=== PATIENT | female | born 1980 | race Caucasian/White ===

== ENCOUNTER 2017-08-03 02:33 | Emergency (ER) | payer OTHER ==
[~2017-08-03] VITALS: Ht 165.1 cm; Wt 75.0 kg
[2017-08-03] MEDS ORDERED: METOCLOPRAMIDE HCL 5 MG/ML 2 ML VIAL IM ONE (04:00)
[2017-08-03] MEDS ORDERED: KETOROLAC TROMETHAMINE 30 MG/ML VIAL IM ONE (04:00)
[2017-08-03] MEDS ORDERED: DiphenhydrAMINE HCL 50 MG/ML VIAL IM ONE (04:00)
[2017-08-03 04:34] LABS: BASOPHILS # (AUTO) 0.06 K/uL (0.00-0.20); BASOPHILS % (AUTO) 0.6 % (0.0-2.0); EOSINOPHILS # (AUTO) 0.05 K/uL (0.00-0.70); EOSINOPHILS % (AUTO) 0.49 % (1.0-6.0); HEMATOCRIT 36.4 % (36-46); HEMOGLOBIN 12.4 g/dL (12.0-16.0); LYMPHOCYTES # (AUTO) 2.5 K/uL (1.0-4.8); LYMPHOCYTES % (AUTO) 23.4 % (22.0-44.0); MEAN CORPUSCULAR HEMOGLOBIN 29.7 pg (26.0-34.0); MEAN CORPUSCULAR VOLUME 87 fL (80-100); MONOCYTES # (AUTO) 0.3 K/uL (0.1-1.0); MONOCYTES % (AUTO) 2.9 % (2.0-9.0); NEUTROPHILS # (AUTO) 7.7 K/uL (1.8-7.7); NEUTROPHILS % (AUTO) 72.7 % (40.0-70.0); PLATELET COUNT (AUTO) 253 K/uL (150-450); RED BLOOD CELL COUNT(AUTO) 4.17 MIL/uL (4.00-5.20); RED CELL DISTRIBUTION WIDTH 12.7 % (11.5-14.5)
[2017-08-03 04:53] LABS: ANION GAP 8 mmol/L (8-16); CALCIUM, TOTAL 8.8 mg/dL (8.8-10.5); CARBON DIOXIDE 26 mmol/L (22-29); CHLORIDE 104 mmol/L (98-107); CREATININE 0.66 mg/dL (0.60-1.30); GLOMERULAR FILTR. RATE CALC > 60 mL/min (>60); GLUCOSE,RANDOM 105 mg/dL (70-110); POTASSIUM 3.8 mmol/L (3.5-5.1); SODIUM SERUM 138 mmol/L (136-145); UREA NITROGEN, BLOOD 15 mg/dL (7-18)
[2017-08-03 05:00] LABS: ALANINE AMINOTRANSFERASE 18 U/L (12-78); ALBUMIN 3.8 g/dL (3.4-5.0); ALKALINE PHOSPHATASE 48 U/L (46-116); ASPARTATE AMINOTRANSFERASE 15 U/L (15-37); BILIRUBIN,TOTAL 0.4 mg/dL (0.1-1.0); LIPASE 100 U/L (73-393)
[2017-08-03 05:26] VITALS: BP 136/75
== END 2017-08-03 05:30 | disposition home or self-care (01) ==
LOC: EMS 02:34
DX: R51 Headache (principal); E78.00 Pure hypercholesterolemia, unspecified
CPT/HCPCS: 36415; 80053; 83690; 84703; 85025; 96372; 99284; J1200; J1885; J2765

== ENCOUNTER 2017-10-23 18:02 | Emergency (ER) | payer OTHER ==
[~2017-10-23] VITALS: Ht 162.6 cm; Wt 92.7 kg
[2017-10-23] MEDS ORDERED: PredniSONE 20 MG TABLET PO ONE (20:15)
[2017-10-23] MEDS ORDERED: ALBUTEROL SULFATE 2.5 MG/0.5 ML NEB SOLUTION NEB ONE (20:15)
[2017-10-23] MEDS ORDERED: IPRATROPIUM BROMIDE 0.5 MG/2.5 ML NEB SOLUTION NEB ONE (20:15)
[2017-10-23 21:34] VITALS: BP 141/77
== END 2017-10-23 21:40 | disposition home or self-care (01) ==
LOC: EMS 18:06
DX: J06.9 Acute upper respiratory infection, unspecified (principal); J40 Bronchitis, not specified as acute or chronic; R51 Headache; E78.00 Pure hypercholesterolemia, unspecified
CPT/HCPCS: 71046; 94640; 99284; J7512; J7613

== ENCOUNTER 2018-07-14 15:53 | Emergency (ER) | payer MEDICAID, OTHER ==
[~2018-07-14] VITALS: Ht 160 cm; Wt 90.9 kg
[2018-07-14] MEDS ORDERED: BACL10TA PO (16:06)
[2018-07-14] MEDS ORDERED: GABA-531 PO (16:06)
[2018-07-14] MEDS ORDERED: GABAPENTIN 400 MG CAPSULE PO ONE (17:45)
[2018-07-14] MEDS ORDERED: ONDANSETRON HCL 4 MG TABLET PO ONE (17:45)
[2018-07-14] MEDS ORDERED: DIAZEPAM 5 MG TABLET PO ONE (17:45)
[2018-07-14 18:10] VITALS: BP 126/79
== END 2018-07-14 18:12 | disposition home or self-care (01) ==
LOC: EMS 15:54
DX: G56.91 Unspecified mononeuropathy of right upper limb (principal); M25.511 Pain in right shoulder; R11.0 Nausea; M79.605 Pain in left leg
CPT/HCPCS: 99284; Q0162

== ENCOUNTER 2021-11-23 22:43 | Emergency (ER) | payer MEDICAID ==
[~2021-11-23] VITALS: Ht 160 cm; Wt 97.7 kg
[~2021-11-23 22:43] MED LIST: BACL10TA PO; GABA-1181 PO
[2021-11-23] MEDS ORDERED: IBUPROFEN 400 MG TABLET PO ONE (23:45)
[2021-11-23] MEDS ORDERED: ACETAMINOPHEN 325 MG TABLET PO ONE (23:45)
[2021-11-24 01:43] VITALS: BP 120/72
[2021-11-24] MEDS ORDERED: PERTUSS(ACELL),DIPH,TET VAC/PF 0.5 ML SYRINGE IM. ONE (02:15)
== END 2021-11-24 03:06 | disposition home or self-care (01) ==
LOC: EMS 22:47
DX: S80.212A Abrasion, left knee, initial encounter (principal); Z88.5 Allergy status to narcotic agent; W18.39XA Other fall on same level, initial encounter; Y93.89 Activity, other specified; Y92.89 Other specified places as the place of occurrence of the external cause; Y99.8 Other external cause status
CPT/HCPCS: 29530; 73503; 73552; 90471; 90715; 99284

== ENCOUNTER 2022-04-27 21:31 | Emergency (ER) | payer MEDICAID ==
[~2022-04-27] VITALS: Ht 162.6 cm; Wt 90.9 kg
[2022-04-27] MEDS ORDERED: SODIUM CHLORIDE 0.9% 500 ML IV ONE (22:30)
[2022-04-27 23:25] LABS: BASOPHILS % (AUTO) 0.6 % (0.0-2.0); EOSINOPHILS % (AUTO) 0.5 % (1.0-6.0); HEMATOCRIT 40.1 % (36-46); HEMOGLOBIN 13.6 g/dL (12.0-16.0); LYMPHOCYTES # (AUTO) 1.8 K/uL (1.0-4.8); LYMPHOCYTES % (AUTO) 17.4 % (22.0-44.0); MEAN CORPUSCULAR HEMOGLOBIN 29.3 pg (26.0-34.0); MEAN CORPUSCULAR HGB CONC 33.9 G/dL (31.0-37.0); MEAN CORPUSCULAR VOLUME 87 fL (80-100); MONOCYTES # (AUTO) 0.5 K/uL (0.1-1.0); MONOCYTES % (AUTO) 4.3 % (2.0-9.0); NEUTROPHILS # (AUTO) 8.2 K/uL (1.8-7.7); NEUTROPHILS % (AUTO) 77.2 % (40.0-70.0); PLATELET COUNT (AUTO) 248 K/uL (150-450); RED BLOOD CELL COUNT(AUTO) 4.63 MIL/uL (4.00-5.20)
[2022-04-27 23:34] LABS: ANION GAP 8 mmol/L (8-16); CALCIUM, TOTAL 8.5 mg/dL (8.8-10.5); CARBON DIOXIDE 25 mmol/L (22-29); CHLORIDE 107 mmol/L (98-107); CREATININE 0.71 mg/dL (0.60-1.30); GLUCOSE,RANDOM 107 mg/dL (70-110); POTASSIUM 3.9 mmol/L (3.5-5.1); SODIUM SERUM 140 mmol/L (136-145); UREA NITROGEN, BLOOD 12 mg/dL (7-18)
[2022-04-27 23:37] LABS: GLOMERULAR FILTR. RATE CALC > 60 mL/min (>60)
[2022-04-27 23:49] LABS: ALANINE AMINOTRANSFERASE 18 U/L (12-78); ALBUMIN 3.3 g/dL (3.4-5.0); ALKALINE PHOSPHATASE 53 U/L (46-116); ASPARTATE AMINOTRANSFERASE 11 U/L (15-37); BILIRUBIN,TOTAL 0.2 mg/dL (0.1-1.0); HCG,QUANTITATIVE < 1 mIU/mL (0-6); THYROID STIMULATING HORMONE 0.46 uIU/mL (0.36-3.74); TOTAL PROTEIN, SERUM 6.4 g/dL (6.4-8.2)
[2022-04-28 00:33] VITALS: BP 113/67
[2022-04-28 00:38] LABS: COVID AG,FIA SOURCE NASOPHARYNGEAL
== END 2022-04-28 01:16 | disposition home or self-care (01) ==
LOC: EMS 21:39
DX: R42 Dizziness and giddiness (principal); M19.90 Unspecified osteoarthritis, unspecified site; G62.9 Polyneuropathy, unspecified; R73.03 Prediabetes; Z98.2 Presence of cerebrospinal fluid drainage device; Z88.8 Allergy status to other drugs, medicaments and biological substances; Z20.822 Contact with and (suspected) exposure to COVID-19
CPT/HCPCS: 99285; 96360; 71045; 87426; 80053; 84443; 84484; 84702; 85025; 36415; 93005; J7040

== ENCOUNTER 2022-08-31 22:53 | Emergency (ER) | payer MEDICAID ==
[~2022-08-31] VITALS: Ht 160 cm; Wt 85.0 kg
[2022-09-01 00:30] VITALS: BP 129/78
[2022-09-01] MEDS ORDERED: IBUP-2070 PO (00:56)
[2022-09-01] MEDS ORDERED: KETOROLAC TROMETHAMINE 60 MG/2 ML VIAL IM ONE (01:00)
== END 2022-09-01 02:00 | disposition home or self-care (01) ==
LOC: EMS 23:51
DX: M54.6 Pain in thoracic spine (principal); M25.511 Pain in right shoulder; M25.552 Pain in left hip; R73.03 Prediabetes; V49.9XXA Car occupant (driver) (passenger) injured in unspecified traffic accident, initial encounter; Y93.89 Activity, other specified; Y92.89 Other specified places as the place of occurrence of the external cause; Y99.8 Other external cause status; Z88.6 Allergy status to analgesic agent; G89.29 Other chronic pain
CPT/HCPCS: 99283; 96372; J1885

== ENCOUNTER 2024-04-07 06:54 | Emergency (ER) | payer MEDICAID ==
[~2024-04-07] VITALS: Ht 162.6 cm; Wt 81.8 kg
[~2024-04-07 06:54] MED LIST changes: -BACL10TA PO; -GABA-1181 PO; +IBUP-1492 PO
[2024-04-07] MEDS: ONDANSETRON HCL 4 MG/2 ML VIAL IVP ONE (07:38)
[2024-04-07] MEDS: SODIUM CHLORIDE 0.9% 1,000 ML IV ONE (07:38)
[2024-04-07 07:40] LABS: BASOPHILS % (AUTO) 0.5 % (0.0-2.0); EOSINOPHILS % (AUTO) 0.2 % (1.0-6.0); HEMATOCRIT 41.3 % (36-46); HEMOGLOBIN 13.7 g/dL (12.0-16.0); LYMPHOCYTES # (AUTO) 1.3 K/uL (1.0-4.8); MEAN CORPUSCULAR HEMOGLOBIN 29.9 pg (26.0-34.0); MEAN CORPUSCULAR HGB CONC 33.3 G/dL (31.0-37.0); MEAN CORPUSCULAR VOLUME 90 fL (80-100); MONOCYTES # (AUTO) 0.3 K/uL (0.1-1.0); MONOCYTES % (AUTO) 3.4 % (2.0-9.0); NEUTROPHILS % (AUTO) 80.9 % (40.0-70.0); PLATELET COUNT (AUTO) 268 K/uL (150-450); WHITE BLOOD COUNT (AUTO) 8.7 K/uL (4.5-11.0)
[2024-04-07 07:46] LABS: ANION GAP 6 mmol/L (8-16); CALCIUM, TOTAL 9.1 mg/dL (8.8-10.5); CARBON DIOXIDE 30 mmol/L (22-29); CHLORIDE 103 mmol/L (98-107); CREATININE 0.65 mg/dL (0.60-1.30); GLOMERULAR FILTR. RATE CALC > 60 mL/min (>60); GLUCOSE,RANDOM 99 mg/dL (70-110); POTASSIUM 3.8 mmol/L (3.5-5.1); SODIUM SERUM 139 mmol/L (136-145); UREA NITROGEN, BLOOD 11 mg/dL (7-18)
[2024-04-07 07:57] LABS: ALANINE AMINOTRANSFERASE 22 U/L (12-78); ALBUMIN 3.2 g/dL (3.4-5.0); ALKALINE PHOSPHATASE 48 U/L (46-116); ASPARTATE AMINOTRANSFERASE 16 U/L (15-37); BILIRUBIN,TOTAL 0.5 mg/dL (0.1-1.0); HCG,QUANTITATIVE < 1 mIU/mL (0-6); LIPASE 33 U/L (16-77); TOTAL PROTEIN, SERUM 6.6 g/dL (6.4-8.2)
[2024-04-07 08:42] LABS: APPEARANCE,URINE CLEAR (CLEAR); BILIRUBIN,URINE NEGATIVE (NEGATIVE); COLOR,URINE LIGHT YELLOW (YELLOW); GLUCOSE, URINE (UA) NEGATIVE (NEGATIVE); KETONES,URINE 40-60 mg/dL (NEGATIVE); LEUKOCYTE ESTERASE ,URINE NEGATIVE (NEGATIVE); NITRATE,URINE NEGATIVE (NEGATIVE); OCCULT BLOOD,URINE NEGATIVE (NEGATIVE); PH,URINE 8.5 (5.0-8.0); PROTEIN,URINE 30-70 mg/dL (NEGATIVE); SPECIFIC GRAVITIY, URINE 1.019 (1.003-1.030); UROBILINOGEN,URINE <=1.0 mg/dL (<=1.0)
[2024-04-07 10:22] VITALS: TEMP 97.9
[2024-04-07] MEDS ORDERED: ONDA-104 PO (10:30)
[2024-04-07 10:41] VITALS: BP 112/66; PULSE 73; RESP 18
== END 2024-04-07 10:43 | disposition home or self-care (01) ==
LOC: EMS 06:54
DX: R10.9 Unspecified abdominal pain (principal); R11.2 Nausea with vomiting, unspecified; T50.995A Adverse effect of other drugs, medicaments and biological substances, initial encounter; Z88.5 Allergy status to narcotic agent; Y92.89 Other specified places as the place of occurrence of the external cause
CPT/HCPCS: 99285; 96374; 96361; 80053; 81003; 83690; 84702; 85025; 36415; J2405; J7030

== ENCOUNTER 2024-08-15 20:27 | Emergency (ER) | payer MEDICAID ==
[~2024-08-15] VITALS: Ht 160 cm; Wt 81.8 kg
[~2024-08-15 20:27] MED LIST changes: -IBUP-1492 PO; +ONDA-104 PO
[2024-08-15 20:59] VITALS: PULSE 83; RESP 16; TEMP 97.6; O2SAT 100
[2024-08-15 22:11] VITALS: BP 122/79
== END 2024-08-15 22:30 | disposition left against medical advice (07) ==
LOC: EMS 20:27
DX: R22.33 Localized swelling, mass and lump, upper limb, bilateral (principal); Z53.21 Procedure and treatment not carried out due to patient leaving prior to being seen by health care provider

== ENCOUNTER 2025-01-05 08:27 | Emergency (ER) | payer MEDICAID ==
[~2025-01-05] VITALS: Ht 157.5 cm; Wt 83.2 kg
[2025-01-05] MEDS ORDERED: GABA-1181 PO (08:38)
[2025-01-05] MEDS ORDERED: BACL10TA PO (08:38)
[2025-01-05] MEDS ORDERED: IBUP-45 PO (08:38)
[2025-01-05 08:41] VITALS: TEMP 98.9
[2025-01-05] MEDS ORDERED: MAGN296S94 PO (08:41)
[2025-01-05] MEDS ORDERED: SENN-376 PO (13:05)
[2025-01-05 13:15] VITALS: BP 117/63; PULSE 74; RESP 16; O2SAT 98
== END 2025-01-05 13:39 | disposition home or self-care (01) ==
LOC: EMS 08:27
DX: K59.00 Constipation, unspecified (principal); R10.9 Unspecified abdominal pain; Z88.5 Allergy status to narcotic agent; Z79.899 Other long term (current) drug therapy
CPT/HCPCS: 74018; 99283

== ENCOUNTER 2025-07-22 22:44 | Emergency (ER) | payer MEDICAID ==
[~2025-07-22] VITALS: Ht 160 cm; Wt 85.5 kg
[~2025-07-22 22:44] MED LIST changes: +BACL10TA PO; +GABA-1181 PO; +IBUP-45 PO; +MAGN296S94 PO; -ONDA-104 PO; +SENN-376 PO
[2025-07-22 22:45] VITALS: TEMP 97.5
[2025-07-23] MEDS: FAMOTIDINE 20 MG TABLET PO ONE (00:30)
[2025-07-23 02:12] VITALS: BP 116/69; PULSE 94; RESP 17; O2SAT 98
[2025-07-23] MEDS ORDERED: DIPH25CA85 PO (16:01)
[2025-07-23] MEDS ORDERED: PRED-554 PO (16:01)
== END 2025-07-23 06:18 | disposition home or self-care (01) ==
LOC: EMS 22:57
DX: T78.40XA Allergy, unspecified, initial encounter (principal); M19.90 Unspecified osteoarthritis, unspecified site; Z88.5 Allergy status to narcotic agent; Z79.899 Other long term (current) drug therapy; X58.XXXA Exposure to other specified factors, initial encounter
CPT/HCPCS: 99283; J7512

== ENCOUNTER 2025-07-23 14:35 | Emergency (ER) | payer MEDICAID ==
[~2025-07-23] VITALS: Ht 160 cm; Wt 85.5 kg
[2025-07-23 14:41] VITALS: BP 140/87; PULSE 108; RESP 18; TEMP 97.9; O2SAT 99
[2025-07-23] MEDS ORDERED: DIPH25CA85 PO (16:01)
[2025-07-23] MEDS ORDERED: PRED-554 PO (16:01)
== END 2025-07-23 16:38 | disposition home or self-care (01) ==
LOC: EMS 14:35
DX: M19.90 Unspecified osteoarthritis, unspecified site (principal); T45.0X5A Adverse effect of antiallergic and antiemetic drugs, initial encounter; Z98.890 Other specified postprocedural states; Z79.52 Long term (current) use of systemic steroids; Z79.899 Other long term (current) drug therapy; Z88.5 Allergy status to narcotic agent; Z98.2 Presence of cerebrospinal fluid drainage device; Y92.89 Other specified places as the place of occurrence of the external cause
CPT/HCPCS: 99283; J7512